=== PATIENT | female | born 1985 | race Caucasian/White ===

== ENCOUNTER 2016-09-26 07:57 | Inpatient (IN) | payer OTHER ==
[2016-09-26] VITALS (8 sets, daily range): BP systolic 127–142; BP diastolic 74–91
[~2016-09-26] VITALS: Ht 165.1 cm; Wt 97.0 kg
[~2016-09-26 07:57] MED LIST: BENADRYL25 MG PO; ENDOCET 5-3251 EACH PO; LEVOTHYROXINE112 MCG PO; LEVOTHYROXINE137 MCG PO; Levothroid,Synthroid PO; MELOXICAM15 MG PO; Motrin PO; PRENATAL TABLE1 EAC3 PO; SYNTHROID150 MCG PO; TUMS500 MG PO; TYLENOL EXTRA500 MG PO; ZANTAC150 MG PO
[2016-09-27 03:12] VITALS: BP 133/88
[2016-09-27 06:43] LABS: EOSINOPHIL (%) 0.2 % (0-5); HEMATOCRIT 29.8 % (36.0-46.0); IMMATURE GRANULOCYTE (%) 0.5 % (0.0-0.7); IMMATURE GRANULOCYTE COUNT 0.1 K/uL; INSTRUMENT ABS NEUTROPHIL CT 7.5 K/uL; LYMPHOCYTE COUNT 2.3 K/uL (1.0-2.8); MCH 25.8 PG (29.0-34.0); MCHC 30.5 G/DL (30.0-36.0); MCV 84.4 FL (83-99); MEAN PLAT.VOLUME 12.1 uM^3 (9.5-12.4); MONOCYTE (%) 6.8 % (3-12); MONOCYTE COUNT 0.7 K/uL (0-0.8); NEUTROPHIL (%) 70.5 % (45-76); NEUTROPHIL COUNT 7.5 K/uL (1.8-6.4); PLATELET COUNT 160 K/uL (156-360); RBC DIS.WIDTH-CV 14.3 % (11.8-14.6); RBC DIS.WIDTH-SD 42.9 % (39-53); RED BLOOD COUNT 3.53 M/uL (3.80-5.20)
[2016-09-27 06:46] LABS: WHITE BLOOD COUNT 10.6 K/uL (4.1-10.2)
[2016-09-27 08:27] VITALS: BP 142/91
[2016-09-27 10:52] VITALS: BP 133/83
[2016-09-27 15:17] VITALS: BP 128/69
[2016-09-27 19:28] VITALS: BP 148/85
[2016-09-27 22:50] VITALS: BP 151/87
[2016-09-28 03:30] VITALS: BP 140/85
[2016-09-28 07:23] VITALS: BP 114/74
[2016-09-28 15:34] VITALS: BP 140/80
[2016-09-28] MEDS ORDERED: ENDOCET 5-3251 EACH PO (15:57)
[2016-09-28] MEDS ORDERED: FERROUS SULFAT325 MG PO (15:57)
[2016-09-28] MEDS ORDERED: IBUPROFEN800 MG PO (15:57)
== END 2016-09-28 18:15 | disposition home or self-care (01) | DRG 766 ==
LOC: 2WEST 07:57 → 2SOUTH 10:08 → 2WEST 09-28 18:15
PROVIDERS: Obstetrics & Gynecology
PROC: 10D00Z1 Extraction of Products of Conception, Low, Open Approach (ICD-10-PCS; principal; 2016-09-26)
DX: O34.211 Maternal care for low transverse scar from previous cesarean delivery (principal); O99.03 Anemia complicating the puerperium; D50.9 Iron deficiency anemia, unspecified; N85.8 Other specified noninflammatory disorders of uterus; Z3A.39 39 weeks gestation of pregnancy; Z37.0 Single live birth; E66.9 Obesity, unspecified; Z68.35 Body mass index [BMI] 35.0-35.9, adult; O99.214 Obesity complicating childbirth
CPT/HCPCS: 36415; 85025; 86900; 86901; 87081; J0690; J1100; J2405; J3010; J7120